=== PATIENT | male | born 1955 | race African-American/Black ===

== ENCOUNTER 2024-06-30 11:34 | Emergency (ER) | payer BC, MEDICAID, MEDICARE, OTHER ==
[~2024-06-30] VITALS: Ht 185.4 cm; Wt 121.0 kg
[~2024-06-30 11:34] MED LIST: BENA-8 PO; COR12 PO; FURO-151 PO; KETO-20 PO; POTA99TA4 PO; SIMV-46 PO; WARF5TAB76 PO
[2024-06-30 11:57] VITALS: O2SAT 97
[2024-06-30 14:44] LABS: CHLORIDE 107 mEq/L (98-107); POTASSIUM 4.3 mEq/L (3.5-5.1); SODIUM 139 mEq/L (136-145)
[2024-06-30 14:45] LABS: CARBON DIOXIDE 25 mEq/L (21-32)
[2024-06-30 14:46] LABS: CALCIUM 9.6 mg/dL (8.7-10.4)
[2024-06-30 14:50] LABS: CREATININE 1.1 mg/dL (0.6-1.3); GLUCOSE 88 mg/dL (70-105); UREA NITROGEN BLOOD 11 mg/dL (9-23)
[2024-06-30 14:51] LABS: TROPONIN I HIGH SENSITIVITY 12 ng/L (3.0-53)
[2024-06-30 14:52] LABS: HEMATOCRIT. 46.9 % (42.0-52.0); HEMOGLOBIN. 15.9 g/dL (14.0-18.0); MEAN CORPUSCULAR HEMOGLOBIN 30.8 pg (28.0-32.0); MEAN CORPUSCULAR VOLUME 90.7 fL (80.0-94.0); MEAN PLATELET VOLUME 7.3 fl (7.4-10.4); PLATELET 248 x1000/uL (130-400); RED BLOOD CELL COUNT 5.17 mill/uL (4.7-6.1); WHITE BLOOD COUNT 7.5 x1000/uL (4.5-11.0)
[2024-06-30 14:55] LABS: DIFFERENTIAL COMMENT 1
[2024-06-30 15:17] LABS: PLATELET ESTIMATE NORMAL
[2024-06-30 16:22] LABS: TROPONIN I HIGH SENSITIVITY 13 ng/L (3.0-53)
[2024-06-30 17:19] VITALS: BP 124/88; PULSE 62; RESP 16; TEMP 37.00296; O2SAT 99
== END 2024-06-30 17:18 | disposition home or self-care (01) ==
LOC: ER 11:34 → CANBEDREQ 18:22
DX: I10 Essential (primary) hypertension (principal); Z79.899 Other long term (current) drug therapy
CPT/HCPCS: 36415; 71045; 80048; 83880; 84484; 85025; 99284